=== PATIENT | female | born 1985 ===

== ENCOUNTER 2020-04-29 02:46 | Outpatient (CLI) | payer OTHER, SELFPAY ==
--- NOTE | 2020-04-29 | DI.US_ITS ---
EXAM: MYOFASCIAL PAIN SYNDROME,BACK AND NECK, CERVICOGENIC HEADACHES COMPARISON: No exams were available for comparison TECHNIQUE: Ultrasound performed using standard protocol. FINDINGS: Sonography was provided for Dr. Ramos during the performance of a trigger point injection. Please re rosie to the procedure report for complete details. DATA REPOSITORY:
[2020-04-29 12:56] VITALS: BP 108/71; PULSE 60; RESP 17; TEMP 37; O2SAT 98
[2020-04-29 13:47] VITALS: PULSE 54; O2SAT 97
--- NOTE | 2020-04-29 13:47 | PDOC.PAIN_ITS ---
Pain Clinic Procedure Note Procedure Note Procedure Note: Date of service: 04/29/20 ULTRASOUND GUIDED RIGHT trapezius, rhomboid, infraspinatous, latisimus dorsi muscle trigger point INJECTIONS Pre-Procedural Evaluation: DARLEEN ULRICH has been referred to the [facility] for an Ultrasound Guided right trapezius, rhomboid, infraspinatous, latisimus dorsi trigger point injection for a chief complaint of right upper back and shoulder pain. Pre-procedure Pain Score: 5/10 DX: Muscle pain Patient was interviewed and the medical record reviewed. There were no medical, pharmacologic, radiographic, or other structural contraindications to preforming an ultrasound guided injection. Risks and expected side effects as well as potential benefits of the procedure were reviewed. The patient consent form was signed and witnessed. Standard time-out procedure was performed. The use of direct ultrasound visualization of the needle (rather than a non- guided injection) was required to increase patient safety by excluding inadvertent intramuscular, intratendinous, or intraneural needle placement and minimizing bleeding by avoiding osteochondral or vascular injury from the needle. Additionally, the increased accuracy of placement may increase clinical effectiveness and will allow higher diagnostic specificity when evaluating effectiveness of this injection. Procedure Description: The patient was placed in theprone position and automated blood pressure cuff and pulse oximeter applied for monitoring during the procedure and recorded in the medical record. Pre-injection ultrasound scanning of the area of interest was performed using a linear transducer, identifying relevant anatomy, landmarks, and neurovascular structures allowing for optimal needle path. The site was then prepared in the usual sterile fashion, using thorough Chlorhexadine preparation of the skin and sterile draping. The same ultrasound transducer was then passed into the sterile field using sterile probe cover and sterile ultrasound gel. The injection target was again visualized. Skin and subcutaneous tissues were anesthetized with 1 mL of 1% Lidocaine at each site. A 21G Pajunk ultrasound needle was placed under live ultrasound guidance, using an in-plane approach, to the target area. After visualization of the needle tip at the target area, a mixture of 6 mL 1% Lidocaine and 1 cc of Depomedrol (40 mg/cc), totaling 7 mL of injectate was delivered after negative aspiration for blood. Ultrasound images were captured and stored for documentation purposes. Post-procedure Pain Score:1/10 Vital signs were stable throughout the procedure and were as recorded in the docflowsheet by the nursing staff. Follow up plans and appointments were discussed with the patient.Post procedure instruction was given as documented in nursing documentation and having met discharge criteria, they were discharged from the [facility]. COMMENTS: This procedure can be completed up to 3 times per 12 months if it is found to be effective. Dany Ramos DO, MPH Pain Management
[2020-04-29] MEDS: methylPREDNISolone ACETATE 40 MG/ML VIAL IJ (13:48)
== END 2020-04-29 03:06 ==
PROVIDERS: PCP Nurse Practitioner Family; Visit Provider Preventive Medicine Occupational Medicine
DX: M25.511 Pain in right shoulder (principal); M54.6 Pain in thoracic spine
CPT/HCPCS: 20553; 76942; J1030

== ENCOUNTER 2020-06-25 08:45 | Outpatient (CLI) | payer OTHER, SELFPAY ==
[2020-06-25 08:57] VITALS: BP 116/74; PULSE 71; RESP 18; TEMP 37.1; O2SAT 98
--- NOTE | 2020-06-25 09:36 | DI.RAD_ITS ---
EXAM: XR PAIN CLINIC CERVICAL SP 2V CLINICAL HISTORY: Dx: Cervical Spondylosis TECHNIQUE: 2D and realtime digital imaging was performed. CONTRAST MATERIAL: None. COMPARISON: No exams were available for comparison FINDINGS: Fluoroscopy was provided during pain management therapy performed by Dr. Ramos. See procedure report for details.. Fluoro time: 55.9 seconds Cumulative dose: 4.06 mGy IMPRESSION:
--- NOTE | 2020-06-25 09:39 | PDOC.PAIN ---
Pain Clinic Procedure Note Procedure Note Procedure Note: Date of service: June 25, 2020 CERVICAL MEDIAL BRANCH BLOCKS DARLEEN ULRICH has been referred to the [facility] for cervical medial branch blocks. COMMENTS: I did review her evaluation and her cervical spine MRI. She has neck and Occipital skull pain on the right. I opted for C2-C5 medial branches on the right to attempt to deal with this pain. She was in agreement. She also has right sided trapezius muscle pain and pain down in the axilla. This is currently being worked up. Dx: Cervical spondylosis without myelopathy Patient was interviewed and the medical record reviewed. There were no medical, pharmacologic, radiographic or other structural contraindications to attempting fluoroscopically guided local anesthetic cervical medial branch blocks. Risks and expected side effects as well as potential benefit of the procedure were reviewed and voiced concerns addressed. The printed consent form was signed and witnessed. Standard time-out procedure was performed. Patient was placed in the Left lateral decubitus position on the fluoroscopy table and automated blood pressure cuff and pulse oximeter applied. The skin entry points for approaching the anatomic target points of the segmental medial branches of Right C2-C5 medial branches were identified with fluoroscopy and marked. Following thorough Chlorhexadine preparation of the skin and draping and 1% lidocaine infiltration of the skin entry points and subcutaneous tissues, a 25 gauge spinal needle was placed under fluoroscopic guidance down on to the target point for each respective segmental medial branch. Position was confirmed in A/P and leteral views with 0.25ml of omnipaque 240 injected at each level. This revealed appropriate spread and no vascular uptake. At each point 0.3ml 0.5% bupivicaine was injected. The needles were removed without difficulty. Vital signs were stable throughout the procedure and were as recorded in the docflowsheet by the nursing staff. Follow up plans and appointments were discussed and patient was instructed to keep careful note of how the usual pain was modified by these injections. Specifically, the patient was asked to keep a pain diary for the next 24 hours using a numeric pain scale of 0-10 and report these results at the follow-up visit. Post procedure instruction was given as documented in the nursing documentation and having met discharge criteria, and was discharged from the [facility]. Based on the medial branches blocked today, if they patient has adequate relief and we are able to proceed to radiofrequency ablation, the treatment should result in the denervation of the right C2-C3, C3-C4, and C4-C5 FACET JOINTS. We would expect to denervate a total of 3 facets during the radiofrequency ablation. COMMENTS: She will call back with her 1-4 hour post-procedure pain scores for the right side of her neck and occipital skull. Dany Ramos DO, MPH Pain Management CC: Keon Morales
[2020-06-25 09:48] VITALS: BP 99/53; PULSE 68; RESP 18; O2SAT 18
[2020-06-25] MEDS: Omnipaque 240 MG/ML 50 ML BTL IJ (09:53)
[2020-06-25] MEDS: Bupivacaine 0.5% Pres-Free 10 ML VIAL IJ (09:54)
== END 2020-06-25 08:46 | disposition home or self-care (01) ==
LOC: PC 08:51
PROVIDERS: PCP Nurse Practitioner Family; Visit Provider Preventive Medicine Occupational Medicine
DX: M47.812 Spondylosis without myelopathy or radiculopathy, cervical region (principal)
CPT/HCPCS: 64490; 64491; 64492; 72040; Q9967

== ENCOUNTER 2020-08-13 07:47 | Outpatient (CLI) | payer OTHER, SELFPAY ==
--- NOTE | 2020-08-13 06:00 | DI.RAD_ITS ---
Exam(s) XR PAIN CLINIC CERVICAL SP 2V EXAM: XR PAIN CLINIC CERVICAL SP 2V CLINICAL HISTORY: Dx: Cervical Spondylosis TECHNIQUE: 2D and realtime digital imaging was performed. COMPARISON: No exams were available for comparison FINDINGS: C-arm fluoroscopy was utilized by Dr. Ramos during reported cervical medial branch block. Hard copy s hows needle placement at what appear to be the C2-3 C3-4 C4-5 and C5-6 levels, reportedly on the rig t. IMPRESSION: RADIATION DOSE DELIVERED: abimael Gill=4.38 mGy
[2020-08-13 07:54] VITALS: BP 118/71; PULSE 68; RESP 18; TEMP 36.8; O2SAT 100
[2020-08-13 08:32] VITALS: BP 112/60; PULSE 67; RESP 17; O2SAT 100
--- NOTE | 2020-08-13 08:33 | PDOC.PAIN ---
Pain Clinic Procedure Note Procedure Note Procedure Note: Date of service: 08/13/2020 CERVICAL MEDIAL BRANCH BLOCKS right C2-C5 #2 DARLEEN ULRICH has been referred to the [facility] for cervical medial branch blocks. COMMENTS: She did very well with her first CMBB on the right C2-C5 DX: Cervical spondylosis without myelopathy VAS pre-procedure was 5/10. Patient was interviewed and the medical record reviewed. There were no medical, pharmacologic, radiographic or other structural contraindications to attempting fluoroscopically guided local anesthetic cervical medial branch blocks. Risks and expected side effects as well as potential benefit of the procedure were reviewed and voiced concerns addressed. The printed consent form was signed and witnessed. Standard time-out procedure was performed. Patient was placed in the Left lateral decubitus position on the fluoroscopy table and automated blood pressure cuff and pulse oximeter applied. The skin entry points for approaching the anatomic target points of the segmental medial branches of Right were identified with fluoroscopy and marked. Following thorough Chlorhexadine preparation of the skin and draping and 1% lidocaine infiltration of the skin entry points and subcutaneous tissues, a 25 gauge spinal needle was placed under fluoroscopic guidance down on to the target point for each respective segmental medial branch. Position was confirmed in A/P and lateral views with 0.25ml of omnipaque 240 injected at each level. This revealed appropriate spread and no vascular uptake. At each point 0.3ml 2% Lidocaine was injected. Vital signs were stable throughout the procedure and were as recorded in the docflowsheet by the nursing staff. Follow up plans and appointments were discussed and patient was instructed to keep careful note of how the usual pain was modified by these injections. Specifically, the patient was asked to keep a pain diary for the next 24 hours using a numeric pain scale of 0-10 and report these results at the follow-up visit. Post procedure instruction was given as documented in the nursing documentation and having met discharge criteria, and was discharged from the [facility]. Based on the medial branches blocked today, if they patient has adequate relief and we are able to proceed to radiofrequency ablation, the treatment should result in the denervation of the right C2-C3, C3-C4, and C4-C5 FACET JOINTS3. We would expect to denervate a total of facets during the radiofrequency ablation. COMMENTS: Post-procedure VAS was 0/10. Dany Ramos DO, MPH Pain Management CC: Keon Morales
[2020-08-13] MEDS: Lidocaine 2% Pres-Free 5 ML VIAL IJ (08:46)
[2020-08-13] MEDS: Omnipaque 240 MG/ML 50 ML BTL IJ (08:46)
== END 2020-08-13 07:48 | disposition home or self-care (01) ==
LOC: PC 07:47
PROVIDERS: PCP Nurse Practitioner Family; Visit Provider Preventive Medicine Occupational Medicine
DX: M47.812 Spondylosis without myelopathy or radiculopathy, cervical region (principal)
CPT/HCPCS: 64490; 64491; 64492; 72040; Q9967

== ENCOUNTER 2020-08-27 08:45 | Outpatient (CLI) | payer OTHER, SELFPAY ==
--- NOTE | 2020-08-27 06:00 | DI.RAD_ITS ---
Exam(s) XR PAIN CLINIC CERVICAL SP 2V EXAM: XR PAIN CLINIC CERVICAL SP 2V CLINICAL HISTORY: Dx: Cervical Spondylosis TECHNIQUE: 2D and realtime digital imaging was performed. Radiologist not present. CONTRAST MATERIAL: None. COMPARISON: No exams were available for comparison FINDINGS: Fluoroscopy was provided for pain management therapy performed. Procedure was apparently cervical ra diofrequency ablation. Please see procedure note for details. Total fluoroscopy time = 73.5 seconds Cumulative dose: Jairor=4.53 mGy IMPRESSION: RADIATION DOSE DELIVERED:
[2020-08-27 08:52] VITALS: BP 117/78; PULSE 65; RESP 18; TEMP 36.6; O2SAT 97
[2020-08-27] MEDS: Lactated Ringers 1,000 ML 80 ML IV (09:29)
[2020-08-27] MEDS: Midazolam 2 MG/2 ML VIAL IVP (09:35)
[2020-08-27] MEDS: fentaNYL 100 MCG/2 ML VIAL IVP (09:35)
[2020-08-27 10:12] VITALS: BP 139/83; PULSE 58; RESP 20; O2SAT 98
--- NOTE | 2020-08-27 10:16 | PDOC.PAIN ---
Pain Clinic Procedure Note Procedure Note Procedure Note: Cervical Radiofrequency with Coolief Machine PROCEDURE NOTE Date of Service: August 27, 2020 Patient: DARLEEN ULRICH Provider: Dany Ramos DO, MPH Pre Operative Diagnosis: Cervical spondylosis without myelopathy Post Operative Diagnosis: Same PROCEDURE: 1. C2-C3 facet joint radiofrequency denervation 2. C3-C4 facet joint radiofrequency denervation 3. C4-C5 facet joint radiofrequency denervation DARLEEN ULRICH was brought to the operating room and placed on the exam table in a comfortable prone position. The place for the needle placement was obtained by manual palpation as well as radiographic confirmation. The sterile field was prepped by chlorhexidine and sterile drapes. Local anesthesia, both superficial and deep was provided by local infiltration of 8 ml Lidocaine 1%. Using fluoroscopic guidance, A 17g 50 mm radiofrequency introducer needle with a 2 mm active tip was placed overlying the right C2 cervical vertebra from the posterior approach and was advanced until bony contact was felt with the articular pillar. The needle was walked off the pillar, maintaining contact with the bone. Attempted aspiration revealed no blood or cerebrospinal fluid. Radiographs were then made in AP and lateral. Motor testing was then performed with 2.0 volts and no upper extremity motor stimulation was observed. 1 cc of the 5ml Lidocaine was injected through the RF needle. A radiofrequency lesion of the right medial branch of C2 was then performed at 80 degrees Celsius for 2 minutes and 30 seconds. I then injected 1/4 cc of Dexamethasone (10 mg/cc) followed by 1 cc of 0.5% Bupivacaine. The same procedure was repeated for RIGHT C3, C4 and C5 medial branches. POST PROCEDURE EVALUATION: She did very well with the procedure Follow up plans and appointments were discussed with the DARLEEN . Post procedure instruction was given as documented in nursing documentation and having met discharge criteria, DARLEEN was discharged from the [facility]. COMMENTS: No complications. F/U with our office as needed. I personally performed this entire procedure. Dany Ramos DO, MPH Pain Management Attending Physician
[2020-08-27] MEDS: Bupivacaine 0.5% Pres-Free 10 ML VIAL IJ (10:34)
[2020-08-27] MEDS: Lidocaine 2% Pres-Free 5 ML VIAL IJ (10:34)
[2020-08-27] MEDS: Dexamethasone Sod. Phos./Pres-Free 10 MG/ML VIAL IJ (10:34)
== END 2020-08-27 08:46 | disposition home or self-care (01) ==
LOC: PC 08:46
PROVIDERS: PCP Nurse Practitioner Family; Visit Provider Preventive Medicine Occupational Medicine
DX: M47.812 Spondylosis without myelopathy or radiculopathy, cervical region (principal)
CPT/HCPCS: 64633; 64634; 72040; J2250; J3010

== ENCOUNTER 2021-01-05 09:36 | Outpatient (REF) | payer OTHER, SELFPAY ==
[2021-01-08 13:38] LABS: 2-Hydroxy Ethyl Flurazepam Not Detected ng/mL (Cutoff: 10); 3,4-methylenedioxyamphetamine Not Detected ng/mL (Cutoff: 100); 3,4-methylenedioxyethylampheta Not Detected ng/mL (Cutoff: 100); 3,4-methylenedioxymethamphetam Not Detected ng/mL (Cutoff: 100); 6-monoacetylmorphine Not Detected ng/mL (Cutoff: 25); Alpha-Hydroxy Midazolam Not Detected ng/mL (Cutoff: 10); Alpha-Hydroxy Triazolam Not Detected ng/mL (Cutoff: 10); Alpha-Hydroxyalprazolam Not Detected ng/mL (Cutoff: 10); Alpha-OH-alprazolam Glucuronid Not Detected ng/mL (Cutoff: 50); Alprazolam Not Detected ng/mL (Cutoff: 10); Amphetamine Not Detected ng/mL (Cutoff: 100); Barbiturates Negative ng/mL (Cutoff: 200); Buprenorphine Not Detected ng/mL (Cutoff: 5); Chlordiazepoxide Not Detected ng/mL (Cutoff: 10); Clobazam Not Detected ng/mL (Cutoff: 10); Clonazepam Not Detected ng/mL (Cutoff: 10); Cocaine Negative ng/mL (Cutoff: 150); Codeine Not Detected ng/mL (Cutoff: 25); Comment Normal; Creatinine, U 30.9 mg/dL; Diazepam Not Detected ng/mL (Cutoff: 10); Dihydrocodeine Not Detected ng/mL (Cutoff: 25); EDDP Not Detected ng/mL (Cutoff: 25); Ephedrine Not Detected ng/mL (Cutoff: 100); Fentanyl Not Detected ng/mL (Cutoff: 2); Flurazepam Not Detected ng/mL (Cutoff: 10); Hydrocodone Not Detected ng/mL (Cutoff: 25); Hydromorphone Not Detected ng/mL (Cutoff: 25); Hydromorphone-3-beta-glucuroni Not Detected ng/mL (Cutoff: 100); Lorazepam Not Detected ng/mL (Cutoff: 10); Lorazepam Glucuronide Not Detected ng/mL (Cutoff: 50); Meperidine Not Detected ng/mL (Cutoff: 25); Methadone Not Detected ng/mL (Cutoff: 25); Methamphetamine Not Detected ng/mL (Cutoff: 100); Methylphenidate Not Detected ng/mL (Cutoff: 20); Midazolam Not Detected ng/mL (Cutoff: 10); Morphine Not Detected ng/mL (Cutoff: 25); N-Desmethylclobazam Not Detected ng/mL (Cutoff: 200); N-desmethyltapentadol Not Detected ng/mL (Cutoff: 50); Naloxone Not Detected ng/mL (Cutoff: 25); Norbuprenorphine Not Detected ng/mL (Cutoff: 5); Norfentanyl Not Detected ng/mL (Cutoff: 2); Norhydrocodone Not Detected ng/mL (Cutoff: 25); Normeperidine Not Detected ng/mL (Cutoff: 25); Noroxycodone Not Detected ng/mL (Cutoff: 25); Noroxymorphone Not Detected ng/mL (Cutoff: 25); O-desmethyltramadol Not Detected ng/mL (Cutoff: 25); Oxazepam Glucuronide Not Detected ng/mL (Cutoff: 50); Phencyclidine (PCP) Not Detected ng/mL (Cutoff: 20); Phentermine Not Detected ng/mL (Cutoff: 100); Prazepam Not Detected ng/mL (Cutoff: 10); Propoxyphene Not Detected ng/mL (Cutoff: 25); Pseudoephedrine Not Detected ng/mL (Cutoff: 100); Ritalinic Acid Not Detected ng/mL (Cutoff: 100); Specific Gravity 1.006; Tapentadol Not Detected ng/mL (Cutoff: 25); Temazepam Not Detected ng/mL (Cutoff: 10); Temazepam Glucuronide Not Detected ng/mL (Cutoff: 50); Tetrahydrocannabinol Presumptive Positive ng/mL (Cutoff: 50); Tramadol Not Detected ng/mL (Cutoff: 25); Triazolam Not Detected ng/mL (Cutoff: 10); Zolpidem Phenyl-4-Carboxy acid Not Detected ng/mL (Cutoff: 10)
[2021-02-15 07:15] LABS: Carboxy-THC Interpretation Positive.; Delta-9 CarboxyThc by LC-MS/MS >500.0 ng/mL (Cutoff:<3)
== END 2021-01-05 09:37 | disposition home or self-care (01) ==
LOC: LBN 09:36
PROVIDERS: PCP Nurse Practitioner Family; Visit Provider Internal Medicine
DX: Z79.899 Other long term (current) drug therapy (principal)
CPT/HCPCS: 80307; 80347; 80349; 80364